=== PATIENT | female | born 1980 | race Caucasian/White ===

== ENCOUNTER → 2018-07-23 | Outpatient (CLI) | payer SELFPAY ==
[~2018-07-23] MED LIST: GABA600T4 PO; GASTROGRAFIN SOLUTION 30ML (Q9963) As Ordered ONE; HYDR-3719 PO; ISOVUE-370 76% 100ML VIAL (Q9967) As Ordered ONE; OMEP10CA78 PO
--- NOTE | 2018-07-23 17:37 | REP ---
Soft-tissue neck CT study with IV contrast: History: Lymphadenopathy. Night sweats. Fullness in the right lobe of the thyroid. CT contrast dose: 100 ml of intravenous Isovue [address] findings: The thyroid lobes are normal and symmetric. No vascular abnormality is seen. Parotid and submandibular glands are normal and symmetric as well. There is no evidence of neck mass, cyst, or adenopathy. Normal sized the anterior and posterior lymph nodes are seen. The glottic and subglottic airway are unremarkable. The lung apices are clear. No bony destructive lesion is seen. The visualized paranasal sinuses are clear. No intraorbital abnormality. Impression: Negative soft-tissue neck CT study. Electronically Signed by Segundo Lopez MD 07/23/2018 08:06 P
--- NOTE | 2018-07-23 17:42 | REP ---
CT CHEST WITH IV CONTRAST: TECHNIQUE: Axial contrast enhanced images from the thoracic inlet to the upper abdomen using 100 mL Isovue 370 intravenous contrast material with multiplanar reformations. No thoracic aortic aneurysm or dissection is seen. Heart is normal in size. There is no mediastinal, hilar or chest wall lymphadenopathy. There is no pleural or pericardial effusion. Small amount of residual thymic tissue is seen in the anterior mediastinum. Lungs are clear with no infiltrate or other suspicious opacities. IMPRESSION: Negative CT chest with contrast. Electronically Signed by Kris Osborn MD 07/28/2018 11:49 A
--- NOTE | 2018-07-23 17:47 | REP ---
CT ABDOMEN AND PELVIS WITH ORAL AND IV CONTRAST AND CT ABDOMEN WITHOUT IV CONTRAST: TECHNIQUE: Axial noncontrast images through the abdomen followed by contrast-enhanced images through the abdomen and pelvis using 100 mL Isovue 370 intravenous contrast material, with coronal and sagittal reformations. The liver, spleen, adrenals, pancreas and kidneys are unremarkable in appearance. There is no renal or ureteral calculus is seen. No gallstones are seen. There is no hydroureteronephrosis. No abdominal aortic aneurysm is seen. There is no adenopathy. I see no free air or free fluid. I see no bowel wall thickening. No pelvic mass is seen. The patient has had a hysterectomy. The urinary bladder is mildly distended and grossly unremarkable. IMPRESSION: No significant abnormalities identified. Electronically Signed by Kris Osborn MD 07/28/2018 11:49 A
--- NOTE | 2018-07-23 19:16 | REP ---
Thyroid sonography: History: Palpable lumps all over the neck. Fullness in the right lobe of the thyroid. Findings: Thyroid isthmus is 0.3 cm in thickness. Right lobe dimensions are 3.8 x 1.5 x 1.5 cm. Left lobe measures 3.9 x 1.7 x 1.3 cm. No thyroid nodule is seen. There is a tiny cyst in each lobe measuring 1 mm and 2 mm on the left and right respectively. No extrathyroidal mass or adenopathy is seen. There are multiple cervical lymph nodes bilaterally but these appear to be normal in size. The largest on the left measures 1.0 x 0.9 x 0.3 cm. On the right the two largest lymph nodes measure 1.0 x 1.2 x 0.3 cm and 0.9 x 0.6 x 0.8 cm. Impression: Unremarkable thyroid sonography. Electronically Signed by Segundo Lopez MD 07/23/2018 08:29 P
== END ==
LOC: M RAD 13:36
PROVIDERS: ATTEND Internal Medicine Hematology & Oncology
DX: R91.8 Other nonspecific abnormal finding of lung field (principal)
CPT/HCPCS: 70491; 71260; 74178; 76536; Q9963; Q9967

== ENCOUNTER → 2018-07-23 | Outpatient (CLI) | payer SELFPAY ==
[~2018-07-23] MED LIST changes: -GASTROGRAFIN SOLUTION 30ML (Q9963) As Ordered ONE; -ISOVUE-370 76% 100ML VIAL (Q9967) As Ordered ONE
--- NOTE | 2018-07-27 09:14 | REPMRS ---
Patient History The patient states she had a clinical breast exam in June 2018. Family history of breast cancer at age 47 in mother, prostate cancer in maternal grandfather. [facility] 5 years ago [facility]. Digital Mammo Screening Bilat: July 23, 2018 - Exam #: [id number] Bilateral CC and MLO view(s) were taken. Technologist: Gabbi Ledesma, Technologist Prior study comparison: April 09, 2012, bilateral digital woman screen mammo, performed at [facility]. FINDINGS: There are scattered fibroglandular densities. There is a moderate amount of residual fibroglandular tissue which is fairly symmetric. There is no interval development of dominant mass, architectural distortion, or clustered microcalcification typical of malignancy. There has been no change in the appearance of the mammogram from the prior studies. 3-D tomosynthesis shows no additional findings. Assessment: BI-RADS/ACR category 1 mammogram. Negative Mammogram. Recommendation Breast MRI of both breasts in 6 months. Routine screening mammogram of both breasts in 1 year (for women over age 40). This patient's Lifetime Breast Cancer RIsk is estimated at 21.1 %. Annual screening Breast MRI scanniing is recommended for patient's whose lifetime risk assessment is over 20%. This mammogram was interpreted with the aid of an FDA-approved computer-aided dectection system. Electronically Signed By: jT Lopez MD 07/27/18 0914
== END ==
LOC: M RAD 13:32
PROVIDERS: ATTEND Internal Medicine Hematology & Oncology
DX: Z12.31 Encounter for screening mammogram for malignant neoplasm of breast (principal); Z80.3 Family history of malignant neoplasm of breast

== ENCOUNTER → 2020-01-13 | Outpatient (CLI) | payer OTHER ==
--- NOTE | 2020-01-13 11:04 | REP ---
INDICATION: N63.10 RT BREAST LUMP,Z80.3 FM HX BREAST CA. Palpable lump laterally right breast. This is marked on the skin. COMPARISON: 07/23/2018. TECHNIQUE: MLO and CC views of the breasts performed with tomosynthesis. Additional spot compression and magnification views are performed of the right breast laterally. Focused right breast ultrasound performed laterally at the site of the palpable lump. FINDINGS: There is extremely dense breast parenchyma bilaterally, as seen on prior study. No mass is seen mammographically and there is no architectural distortion. However, clustered pleomorphic microcalcifications are seen in the lateral posterior right breast, best seen on magnification views. These are at approximately the 9 o'clock position. Ultrasound of the lateral right breast demonstrates a cystic structure at 10 o'clock 6 cm from the nipple measuring 7 x 7 x 3 mm. There is also an adjacent hypoechoic structure which is not a simple cyst measuring 6 x 5 x 3 mm. This could represent a complex cyst or solid nodule. It is not hyperemic with Doppler evaluation. The Volpara volumetric breast density pattern is C. IMPRESSION: BIRADS/ACR category 4 suspicious. Clustered microcalcifications posteriorly 9 o'clock position right breast. Recommend stereotactic biopsy. At the site of the palpable lump in the lateral right breast a benign-appearing cystic structure is seen at 10 o'clock 6 cm from the nipple. 7 cm from the nipple a hypoechoic structure may represent a complex cyst or solid nodule measuring 6 x 5 x 3 mm. Recommend ultrasound-guided sampling of that structure. This patient's Tyrer-Cuzick lifetime breast cancer risk assessment score is 20.9%. This mammogram was interpreted with the aid of an FDA-approved computer-aided detection system. The patient states she had a clinical breast exam in December 2019. The patient letter being requested is M 4. RECOMMENDATION: Recommend stereotactic biopsy of new clustered microcalcifications 9 o'clock position right breast. Recommend ultrasound-guided biopsy of complex cyst or solid nodule at 10 o'clock position of the right breast 7 cm from the nipple, in the region of the palpable abnormality. Supplemental MRI of the breasts is recommended given the extremely dense breasts and increased risk of breast cancer. <Electronically signed by Kris Osborn > 01/13/20 1100
== END ==
LOC: M WHC 07:58
PROVIDERS: ATTEND Physician Assistant
DX: N63.11 Unspecified lump in the right breast, upper outer quadrant (principal); Z80.3 Family history of malignant neoplasm of breast; R92.0 Mammographic microcalcification found on diagnostic imaging of breast
CPT/HCPCS: 76642; 77066; G0279

== ENCOUNTER → 2020-10-02 | Outpatient (CLI) | payer OTHER, SELFPAY ==
[~2020-10-02] MED LIST changes: +GLUCAGON INJ 1MG VIAL As Ordered ONE; +ISOVUE-370 76% 100ML VIAL As Ordered ONE; +NEULUMEX 0.1% SUSPENSION 450ML BOTTLE (FORMERLY VOLUMEN) As Ordered ONE
--- NOTE | 2020-10-02 17:49 | REP ---
INDICATION: LOCALIZED ENLARGED LN, DIARRHEA, EPIGASTRIC PAIN COMPARISON: 07/23/2018. TECHNIQUE: CT Scan of the abdomen and pelvis was performed with intravenous administration of 100 cc of Isovue 370, and volumen oral contrast. Sagittal and coronal reconstruction images are performed. FINDINGS: Lung bases: Unremarkable. Liver: Normal Gallbladder: Unremarkable. Spleen: There is a tiny calcified granuloma. Adrenals: Normal. Pancreas: Normal. Kidneys: Normal. Small and large bowel: Unremarkable. Free fluid: None. Abdominal aorta: No aneurysm or dissection. Adenopathy: None. Appendix: Not inflamed. Osseous structures: Unremarkable. Pelvis: No mass. Prior hysterectomy. IMPRESSION: No significant abnormalities detected. <Electronically signed by Kris Osborn > 10/02/20 [id number]
== END ==
LOC: M RAD 15:07
PROVIDERS: ATTEND Internal Medicine Gastroenterology
DX: R59.0 Localized enlarged lymph nodes (principal); R13.13 Dysphagia, pharyngeal phase; R19.7 Diarrhea, unspecified
CPT/HCPCS: 74177; J1610; Q9967

== ENCOUNTER → 2021-01-17 | Outpatient (CLI) | payer SELFPAY ==
[~2021-01-17] MED LIST changes: -GLUCAGON INJ 1MG VIAL As Ordered ONE; -ISOVUE-370 76% 100ML VIAL As Ordered ONE; -NEULUMEX 0.1% SUSPENSION 450ML BOTTLE (FORMERLY VOLUMEN) As Ordered ONE
== END ==
LOC: M LABSMTC 09:51
PROVIDERS: ATTEND Anesthesiology
DX: Z11.52 Encounter for screening for COVID-19 (principal)

== ENCOUNTER 2021-01-22 11:19 | Day surgery (SDC) | payer SELFPAY ==
[~2021-01-22] VITALS: Ht 157.5 cm; Wt 48.7 kg
[~2021-01-22 11:19] MED LIST changes: +NS 1,000 ML IV ONE
--- OUTSIDE RECORDS SUMMARY | 2021-01-22 11:23 | CCD ---
Author Author [facility] Organization [facility] Address Unknown Phone Unavailable Care Team Providers [facility] Volunteer Coordinator Name Role Phone HEMA LOZA MD Unavailable Unavailable HEMA LOZA MD Unavailable Unavailable HEMA LOZA MD Unavailable Unavailable HEMA LOZA MD Unavailable Unavailable HEMA LOZA MD Unavailable Unavailable HEMA LOZA MD Unavailable Unavailable HEMA LOZA MD Unavailable Unavailable HEMA LOZA MD Unavailable Unavailable HEMA LOZA MD Unavailable Unavailable HEMA LOZA MD Unavailable Unavailable HEMA LOZA MD Unavailable Unavailable REINHEMA YODER MD Unavailable Unavailable REINHEMA YODER MD Unavailable Unavailable REINHEMA YODER MD Unavailable Unavailable HEMA LOZA MD Unavailable Unavailable HEMA LOZA MD Unavailable Unavailable HEMA LOZA MD Unavailable Unavailable HEMA LOZA MD Unavailable Unavailable HEMA LOZA MD Unavailable Unavailable HEMA LOZA MD Unavailable Unavailable HEMA LOZA MD Unavailable Unavailable HEMA LOZA MD Unavailable Unavailable HEMA LOZA MD Unavailable Unavailable HEMA LOZA MD Unavailable Unavailable HEMA LOZA MD Unavailable Unavailable HEMA LOZA MD Unavailable Unavailable HEMA LOZA MD Unavailable Unavailable HEMA LOZA MD Unavailable Unavailable HEMA LOZA MD Unavailable Unavailable HEMA LOZA MD Unavailable Unavailable HEMA LOZA MD Unavailable Unavailable REINHEMA YODER MD Unavailable Unavailable REINDL, HEMA MENDEZ Unavailable Unavailable REINDL, HEMA MENDEZ Unavailable Unavailable REINDL, HEMA MENDEZ Unavailable Unavailable REINDL, HEMA MENDEZ Unavailable Unavailable REINDL, HEMA MENDEZ Unavailable Unavailable REINDL, HEMA MENDEZ Unavailable Unavailable REINDL, HEMA MENDEZ Unavailable Unavailable REINDL, HEMA MENDEZ Unavailable Unavailable REINDL, HEMA MENDEZ Unavailable Unavailable REINDL, HEMA MENDEZ Unavailable Unavailable LAUREN, C., HENRY Unavailable Unavailable ENGLEFE HAYES MD Unavailable Unavailable ENGLEFE HAYES MD Unavailable Unavailable ENGLEFE HAYES MD Unavailable Unavailable ENGLEFE HAYES MD Unavailable Unavailable ENGLEFE HAYES MD Unavailable Unavailable ENGLEFE MD Unavailable Unavailable ENGLEFE HAYES MD Unavailable Unavailable ENGLEFE HAYES MD Unavailable Unavailable ENGLEFE HAYES MD Unavailable Unavailable ENGLEFE HAYES MD Unavailable Unavailable ENGLEFE HAYES MD Unavailable Unavailable ENGLEFE HAYES MD Unavailable Unavailable ENGLEFE HAYES MD Unavailable Unavailable ENGLEFE HAYES MD Unavailable Unavailable ENGLEFE HAYES MD Unavailable Unavailable ENGLEFE HAYES MD Unavailable Unavailable ENGLEFE HAYES MD Unavailable Unavailable ENGLEFE HAYES MD Unavailable Unavailable ENGLEFE HAYES MD Unavailable Unavailable ENGLEFE HAYES MD Unavailable Unavailable ENGLEFE HAYES MD Unavailable Unavailable ENGLEFE HAYES MD Unavailable Unavailable ENGLEFE HAYES MD Unavailable Unavailable ENGLEEF HAYES MD Unavailable Unavailable ENGLEFE HAYES MD Unavailable Unavailable ENGLEFE HAYES MD Unavailable Unavailable ENGLEFE HAYES MD Unavailable Unavailable ENGLEFE HAYES MD Unavailable Unavailable ENGLEFE HAYES MD Unavailable Unavailable ENGLEFE HAYES MD Unavailable Unavailable ENGLEFE HAYES MD Unavailable Unavailable ENGLEFE HAYES MD Unavailable Unavailable ENGLEFE HAYES MD Unavailable Unavailable ENGLEFE HAYES MD Unavailable Unavailable ENGLEFE HAYES MD Unavailable Unavailable ENGLEFE HAYES MD Unavailable Unavailable ENGLEFE MD Unavailable Unavailable ENGLEFE HAYES MD Unavailable Unavailable ENGLEFE HAYES MD Unavailable Unavailable ENGLEFE HAYES MD Unavailable Unavailable ENGLEFE HAYES MD Unavailable Unavailable ENGLEFE HAYES MD Unavailable Unavailable ENGLEFE HAYES MD Unavailable Unavailable ENGLEFE HAYES MD Unavailable Unavailable ENGLEFE HAYES MD Unavailable Unavailable ENGLEFE MD Unavailable Unavailable ENGLEFE HAYES MD Unavailable Unavailable ENGLEFE HAYES MD Unavailable Unavailable ENGLEFE HAYES MD Unavailable Unavailable ENGLEFE HAYES MD Unavailable Unavailable ENGLEFE HAYES MD Unavailable Unavailable ENGLE, FE MD Unavailable Unavailable ENGLE, FE MD Unavailable Unavailable ENGLE, FE MD Unavailable Unavailable ENGLE, FE MD Unavailable Unavailable ENGLE, FE MD Unavailable Unavailable ENGLE, FE MD Unavailable Unavailable ENGLE, FE MD Unavailable Unavailable ENGLE, FE MD Unavailable Unavailable ENGLE, FE MD Unavailable Unavailable ENGLE, FE MD Unavailable Unavailable ENGLE, FE MD Unavailable Unavailable ENGLE, FE MD Unavailable Unavailable ENGLE, FE MD Unavailable Unavailable ENGLE, FE MD Unavailable Unavailable ENGLE, FE MD Unavailable Unavailable ENGLE, FE MD Unavailable Unavailable ENGLE, FE MD Unavailable Unavailable ENGLE, FE MD Unavailable Unavailable ENGLE, FE MD Unavailable Unavailable ENGLE, FE MD Unavailable Unavailable Re-disclosure Warning The records that you are about to access may contain information from federally-assisted alcohol or drug abuse programs. If such information is present, then the following federally mandated warning applies: This information has been disclosed to you from records protected by federal confidentiality rules (42 CFR part 2). The federal rules prohibit you from making any further disclosure of this information unless further disclosure is expressly permitted by the written consent of the person to whom it pertains or as otherwise permitted by 42 CFR part 2. A general authorization for the release of medical or other information is NOT sufficient for this purpose. The Federal rules restrict any use of the information to criminally investigate or prosecute any alcohol or drug abuse patient.The records that you are about to access may contain highly sensitive health information, the redisclosure of which is protected by Article 27-F of the [place] Public [facility] law. If you continue you may have access to information: Regarding HIV / AIDS; Provided by facilities licensed or operated by the [place] Office of Mental Health; or Provided by the [place] Office for People With Developmental Disabilities. If such information is present, then the following [place] mandated warning applies: This information has been disclosed to you from confidential records which are protected by state law. State law prohibits you from making any further disclosure of this information without the specific written consent of the person to whom it pertains, or as otherwise permitted by law. Any unauthorized further disclosure in violation of state law may result in a fine or usp sentence or both. A general authorization for the release of medical or other information is NOT sufficient authorization for further disc losure. Allergies and Adverse Reactions Type Description Substance Reaction Status Data Source(s ) No Known Environmental Allergies No Known Environmental Al lergies [facility] Drug allergy KIWI KIWI SWELLING; RASH [facility] Drug allergy Augmentin Augmentin VOMITING [facility] Propensity to adverse reactions CHANTIX CHANTIX SEVERE NIGHTMAR ES [facility] Propensity to adverse reactions PHENERGAN PHENERGAN RASH [facility] Family History Family Member Name Family Member Gender Family Member Status Date o f Status Description Data Source(s) Unknown Female Problem [facility] ([facility]) Unknown Female Problem [facility] ([facility]) Unknown Female Problem [facility] ([facility]) Unknown Unknown Problem [facility] ([facility], ) Unknown Unknown Problem [facility] ([facility], ) Unknown Unknown Problem [facility] ([facility], ) Encounters Encounter Providers Location Date Indications Data Source(s ) Outpatient Attender: HEMA Delaney/Fabby/Kirill/Johanna yoder 08/21/2020 11:00:00 AM EDT [facility] Outpatient Attender: FE ENGLE MD [facility] 06/26/2020 0 8:00:00 AM EDT [facility] ([facility]) Outpatient Attender: FE ENGLE MDConsultant: FE Manning MD 06/26/2020 07:46:00 AM EDT - 06/26/2020 07:46:00 AM EDT [facility] Outpatient Attender: FE ENGLE MDConsultant: FE Manning MD 03/26/2020 07:47:00 AM EST - 03/26/2020 07:47:00 AM [facility] Outpatient Attender: FE ENGLE MDConsultant: FE Manning MD 02/08/2020 07:21:00 AM EST - 02/08/2020 07:21:00 AM [facility] Outpatient Attender: FE ENGLE MD Family Practice 02/08/2020 0 6:20:00 AM EST [facility] ([facility]) Outpatient Attender: HENRY AGUILARConsultant: FE ENGLE MD 01/23/2020 07:55:00 PM EST - 01/23/2020 08:05:00 PM EST [facility] Immunizations Vaccine Date Status Description Data Source(s) New in 2011. IIV4 02/08/2020 07:21:00 AM EST completed [facility] ([facility]) Medications Medication Brand Name Start Date Product Form Dose Route Admi nistrative Instructions Pharmacy Instructions Status Indications Reaction Description Data Source(s) Acetaminophen 325 MG / Hydrocodone Bitartrate 10 MG Or al Tablet 10-325 mg HYDROCODONE/ACETAMINOPHEN 09/12/2020 12:00:00 AM EDT tablet 60 TAKE ONE TABLET BY MOUTH TWICE A DAY MAXIMUM DAILY DOSE = 2 TAKE ONE TABLET BY MOUTH TWICE A DAY MAXIMUM DAILY DOSE = 2 [facility]/dose 08/21/2020 12:00:00 AM EDT powder 510 USE DIRECTED FOR COLONOSCOPY PREP USE DIRECTED FOR COLONOSCOPY PREP SOLD: 09/06/2020 [facility] Dicyclomine Hydrochloride 20 MG Oral Tablet Dicyclomine HCL 08/21/2020 12:00:00 AM EDT ORAL active [facility] ([facility], ) 20 mg 08/21/2020 12:00:00 AM EDT tablet 60 TAKE ONE TABLET BY MOUTH FOUR TIMES A DAY NEEDED, 1/2 HOUR BEFORE MEAL FOR ABDOMINAL PAIN/DIARRHEA/SPASM TAKE ONE TABLET BY MOUTH FOUR TIMES A DAY NEEDED, 1/2 HOUR BEFORE MEAL FOR ABDOMINAL PAIN/DIARRHEA/SPASM SOLD: 09/06/2020 [facility] POLYETHYLENE GLYCOL 3350 142 MG/ML Oral Solution [Miralax] M iralax 08/21/2020 12:00:00 AM EDT active M [facility]ENT ([facility] [place], ) Magnesium Hydroxide 80 MG/ML Oral Suspension Milk Of Magnesi a 08/21/2020 12:00:00 AM EDT ORAL active M [facility] ([facility] [place], ) Acetaminophen 325 MG / Hydrocodone Bitartrate 10 MG Or al Tablet 10-325 mg HYDROCODONE/ACETAMINOPHEN 08/05/2020 12:00:00 AM EDT tablet 60 TAKE ONE TABLET BY MOUTH TWICE A DAY MAXIMUM DAILY DOSE = 2 TAKE ONE TABLET BY MOUTH TWICE A DAY MAXIMUM DAILY DOSE = 2 SOLD: 08/10/2020 [facility] Acetaminophen 325 MG / Hydrocodone Bitartrate 10 MG Or al Tablet 10-325 mg HYDROCODONE/ACETAMINOPHEN 07/07/2020 12:00:00 AM EDT tablet 60 TAKE ONE TABLET BY MOUTH TWICE A DAY MAXIMUM DAILY DOSE = 2 TAKE ONE TABLET BY MOUTH TWICE A DAY MAXIMUM DAILY DOSE = 2 SOLD: 07/08/2020 [facility] 10-325 mg 06/07/2020 12:00:00 AM EDT tablet 60 TAKE ONE TABLET BY MOUTH TWICE A DAY MAXIMUM DAILY DOSE = 2 TAKE ONE TABLET BY MOUTH TWICE A DAY MAX IMUM DAILY DOSE = 2 SOLD: 06/08/2020 [facility] 10-325 mg 05/09/2020 12:00:00 AM EST tablet 60 TAKE ONE TABLET BY MOUTH TWICE A DAY MAXIMUM DAILY DOSE = 2 TAKE ONE TABLET BY MOUTH TWICE A DAY MAX IMUM DAILY DOSE = 2 SOLD: 05/10/2020 [facility] 10-325 mg 04/08/2020 12:00:00 AM EST tablet 60 TAKE ONE TABLET BY MOUTH TWICE A DAY MAXIMUM DAILY DOSE = TWO TABLETS TAKE ONE TABLET BY MOUTH TWICE A DAY MAXIMUM DAILY DOSE = TWO TABLETS SOLD: 04/08/2020 [facility] 20 mg 03/27/2020 12:00:00 AM EST capsule,delayed release (DR/EC) 90 TAKE ONE CAPSULE BY MOUTH EVERY DAY TAKE ONE CAPSULE BY MOUTH EVERY DAY SOLD: 04/08/2020 [facility] 10-325 mg 03/08/2020 12:00:00 AM EST tablet 60 TAKE ONE TABLET BY MOUTH TWICE A DAY MAXIMUM DAILY DOSE = 2 TAKE ONE TABLET BY MOUTH TWICE A DAY MAX IMUM DAILY DOSE = 2 SOLD: 03/10/2020 [facility] Omeprazole 20 MG Delayed Release Oral Capsule Omeprazole 02/16/2020 12:00:00 AM EST ORAL active [facility] ([facility]) 10-325 mg 02/08/2020 12:00:00 AM EST tablet 60 TAKE ONE TABLET BY MOUTH TWICE A DAY MAXIMUM DAILY DOSE = TWO TABLETS TAKE ONE TABLET BY MOUTH TWICE A DAY MAXIMUM DAILY DOSE = TWO TABLETS SOLD: 02/08/2020 [facility] 10-325 mg 01/31/2020 12:00:00 AM EST tablet 14 TAKE ONE TABLET BY MOUTH TWICE A DAY MAXIMUM DAILY DOSE = 2 TABLETS TAKE ONE TABLET BY MOUTH TWICE A DAY MAXIMUM DAILY DOSE = 2 TABLETS SOLD: 01/31/2020 [facility] 10-325 mg 12/30/2019 12:00:00 AM EDT tablet 60 TAKE ONE TABLET BY MOUTH TWICE A DAY MAXIMUM DAILY DOSE = 2 TABLETS TAKE ONE TABLET BY MOUTH TWICE A DAY MAXIMUM DAILY DOSE = 2 TABLETS SOLD: 12/31/2019 [facility] 10-325 mg 11/29/2019 12:00:00 AM EDT tablet 60 TAKE ONE TABLET BY MOUTH TWICE A DAY MAXIMUM DAILY DOSE = 2 TAKE ONE TABLET BY MOUTH TWICE A DAY MAX IMUM DAILY DOSE = 2 SOLD: 12/01/[address] [facility] [address] [facility] 600 mg 09/29/2019 12:00:00 AM EDT tablet 90 TAKE ONE TABLET BY MOUTH THREE TIMES A DAY TAKE ONE TABLET BY MOUTH THREE TIMES A DAY SOLD: 12/31/2019 [facility] 600 mg 09/29/2019 12:00:00 AM EDT tablet 90 TAKE ONE TABLET BY MOUTH THREE TIMES A DAY TAKE ONE TABLET BY MOUTH THREE TIMES A DAY SOLD: 05/26/2020 [facility] Insurance Providers Payer name Policy type / Coverage type Policy ID Covered alliance party ID Covered alliance party's relationship to lay Policy Lay Plan Information [facility] [id number] Self [id number] [place] [id number] SP [id number] [place] [id number] 18 [id number] [place] [id number] S [id number] [place] [id number] 18 [id number] [place] [id number] 18 [id number] [place] [facility] [place] [facility] [id number] 18 [id number] Private Pay Commercial [id number] Self [id number] Private Pay Commercial [id number] Self [id number] Private Pay Commercial [id number] Self [id number] [place] PPO 302/307 [id number] SP [id number] Private Pay Commercial [id number] Self [id number] Private Pay Commercial [id number] [id number] Self [id number] Private Pay Commercial [id number] [id number] Self [id number] BLUE CROSS BLUE SHIELD -PHYSICIAN [id number] 18 [id number] BLUE CROSS BLUE SHIELD -O/P [id number] 18 [id number] Private Pay Commercial [id number] [id number]106.0 Self [id number] Private Pay Commercial [id number] [id number]10.6106.0 Self [id number] BLUE CROSS BLUE SHIELD CL BS [id number] 18 [id number] Blue Cross Blue Shield CL Commercial [id number] Self YN [id number] [place] [id number] S YND [id number] Blue Cross Blue Shield CL Commercial [id number] 2..[id number] Self YN [id number] Blue Cross Blue Shield CL Commercial [id number] 2...[id number] Self YN [id number] [place]CELL[place] BCBS B [id number] S YND [id number] Blue Cross Blue Shield CL Commercial [id number] ...[id number] Self YN [id number] Blue Cross Blue Shield CL Commercial [id number] 2...[id number] Self YN [id number] Blue Cross Blue Shield CL Commercial [id number] 2..[id number] Self YN [id number] Blue Cross Blue Shield CL Commercial [id number] 2...[id number] Self YN [id number] Blue Cross Blue Shield CL Commercial [id number] ..[id number] Self YN [id number] Blue Cross Blue Shield CL Commercial [id number] 2..[id number] Self YN [id number] Blue Cross Blue Shield CL Commercial [id number] 2..[id number] Self YN [id number] Blue Cross Blue Shield CL Commercial [id number] 2..[id number] Self YN [id number] Blue Cross Blue Shield CL Commercial [id number] Self YN [id number] Blue Cross Blue Shield CL Commercial [id number] Self YN [id number] Blue Cross Blue Shield CL Commercial [id number] Self YN [id number] Blue Cross Blue Shield CL Commercial [id number] Self BLUE CROSS BLUE SHIELD -CLINIC [id number] [facility] [employer] (HMO) [id number] Self BLUE CROSS -O/P [id number] 18 [id number] SIMON DISCT 60% OF CAP CHGS SP [id number] S [id number] P UNAVAILABLE UNAVAILA BLE PRIVATE PAY [id number] 18 [id number] SELF PAY ONLY [id number] SP [id number] Problems, Conditions, and Diagnoses Code Display Name Description Problem Type Effective Dates Data Source(s) Z23 Encounter for immunization Encounter for immunization Diagnosis 02/08/2020 07:21:00 AM [facility] R920 Mammographic microcalcification found on diagnostic imaging of breast Mammographic microcalcification found on diagnostic imaging of breast Diagnosis 02/08/2020 07:21:00 AM [facility] M5030 Other cervical disc degeneration, unspec ified cervical region Other cervical disc degeneration, unspecified cervical region Diagnosis 02/08/2020 07:21:00 AM [facility] K219 Gastro-esophageal reflux disease without esophagitis Gastro-esophageal reflux disease without esophagitis Diagnosis 02/08/2020 07:21:00 AM [facility] N6011 Diffuse cystic mastopathy of right breas t Diffuse cystic mastopathy of right breast Diagnosis 01/23/2020 07:55:00 PM [facility] Surgeries/Procedures No Information Results ID Date Data Source [id number] 01/17/2021 09:55:00 AM EDT [facility] Name Value Range Interpretation Code Description Data Abbie rce(s) Supporting Document(s) SARS-CoV-2 (COVID-19) RNA [Presence] in Respiratory specimen by ALEX with probe detection Not Detected [facility] This lab was ordered by [facility] and reported by [employer] ID Date Data Source [id number] 01/17/2020 01:02:00 PM EST [facility] ([facility]) Name Value Range Interpretation Code Description Data Abbie rce(s) Supporting Document(s) Laboratory test finding (navigational concept) Laboratory test result [facility] ([facility]) Laboratory test finding (navigational concept) Laboratory test result [facility] ([facility]) US Breast Right Laboratory test result [facility] ([facility]) Mammo Diagnostic CAD Unilateral Laboratory test result [facility] ([facility]) ID Date Data Source [id number] 01/13/2020 10:00:00 AM EDT [facility] ([facility]) Name Value Range Interpretation Code Description Data Abbie rce(s) Supporting Document(s) US Breast Right Laboratory test result [facility] ([facility]) Mammo Diagnostic CAD Bilateral Laboratory test result [facility] ([facility]) US Breast Left Laboratory test result [facility] ([facility]) Procedure Social History Code Duration Value Status Description Data Source(s ) Smoking 02/08/2020 12:00:00 AM EST Patient is a former smoker completed Patient is a former [facility] Vital Signs ID Date Data Source UNK Name Value Range Interpretation Code Description Data Source(s) Systolic blood pressure 120 mm[Hg] 120 mm[Hg] M [facility] ([facility] [place], ) Diastolic blood pressure 69 mm[Hg] 69 mm[Hg] [facility] [place] Body height 62.5 [in_i] 62.5 [in_i] [facility] ([facility]) 5'2.50" Body weight 116.00 [lb_av] 116.00 [lb_av] [facility] T ([facility] [place], ) Body mass index (BMI) [Ratio] 20.9 kg/m2 20.9 k g/m2 [facility] Evarts body weight 110 [lb_av] 110 [lb_av] [facility] T ([facility]) Body weight 52.618 kg 52.618 kg [facility] ([facility]) Body surface area Derived from formula 1.53 m2 1.53 m2 [facility] ([facility]) Respiratory rate 18 /min 18 /min [facility] ( [facility]) Oxygen saturation in Arterial blood by Pulse oximetry 98 % 98 % [facility] ([facility]) Body weight 120.00 [lb_av] 120.00 [lb_av] [facility] T ([facility]) Body weight 54.432 kg 54.432 kg [facility] ([facility]) Body height 64 [in_i] 64 [in_i] [facility] 5'4" Body mass index (BMI) [Ratio] 20.6 kg/m2 20.6 k g/m2 [facility] ([facility]) Body surface area Derived from formula 1.57 m2 1.57 m2 [facility] ([facility]) Systolic blood pressure 110 mm[Hg] 110 mm[Hg] M [facility] ([facility]) Diastolic blood pressure 64 mm[Hg] 64 mm[Hg] [facility] ([facility]) Heart rate 77 /min 77 /min [facility] ([facility]) Body temperature 97.7 [degF] 97.7 [degF] [facility] ([facility]) Body temperature 99.2 [degF] 99.2 [degF] [facility] ([facility]) Respiratory rate 18 /min 18 /min [facility] ( [facility]) Systolic blood pressure 120 mm[Hg] 120 mm[Hg] M [facility] ([facility]) Diastolic blood pressure 60 mm[Hg] 60 mm[Hg] [facility] ([facility]) Heart rate 85 /min 85 /min [facility] Oxygen saturation in Arterial blood by Pulse oximetry 98 % 98 % [facility] ([facility]) Body height 64 [in_i] 64 [in_i] [facility] ([facility]) 5'4" Body mass index (BMI) [Ratio] 20.1 kg/m2 20.1 k g/m2 [facility] ([facility]) Body surface area Derived from formula 1.56 m2 1.56 m2 [facility] ([facility]) Body weight 53.071 kg 53.071 kg [facility] ([facility]) Body weight 117.00 [lb_av] 117.00 [lb_av] [facility] T ([facility]) Body temperature 97.6 [degF] 97.6 [degF] [facility] ([facility]) Respiratory rate 18 /min 18 /min [facility] ( [facility]) Body surface area Derived from formula 1.55 m2 1.55 m2 [facility] ([facility]) Oxygen saturation in Arterial blood by Pulse oximetry 95 % 95 % [facility] ([facility]) Body weight 116.00 [lb_av] 116.00 [lb_av] [facility] T ([facility]) Body weight 52.618 kg 52.618 kg [facility] ([facility]) Body height 64 [in_i] 64 [in_i] [facility] ([facility]) 5'4" Body mass index (BMI) [Ratio] 19.9 kg/m2 19.9 k g/m2 [facility] ([facility]) Systolic blood pressure 92 mm[Hg] 92 mm[Hg] M [facility] ([facility]) Diastolic blood pressure 52 mm[Hg] 52 mm[Hg] [facility] ([facility]) Heart rate 72 /min 72 /min [facility]
[2021-01-22] MEDS ORDERED: fentaNYL 100 MCG/2 ML INJECTION (J3010) As Ordered ONE (12:29)
[2021-01-22] MEDS ORDERED: propofoL 200 MG/20 ML VIAL As Ordered ONE (12:30)
[2021-01-22] MEDS ORDERED: LIDOCAINE 2% 100MG/5ML SDV (FOR ANES.) As Ordered ONE (12:30)
--- NOTE | 2021-01-22 13:09 | ROOR ---
Patient Name: Nikky Sparrow Procedure Date: 01/22/2021 12:51 PM Date of : 1980 Age: 40 Room: [facility] Gender: Female Note Status: Finalized Procedure: Upper GI endoscopy Indications: Generalized abdominal pain, Endoscopy to assess diarrhea in patient suspected of having disease of the small-bowel Providers: Jose Saleh MD Referring MD: FE ENGLE MD Requesting Provider: Medicines: Monitored Anesthesia Care Complications: No immediate complications. Procedure: Pre-Anesthesia Assessment: - The heart rate, respiratory rate, oxygen saturations, blood pressure, adequacy of pulmonary ventilation, and response to care were monitored throughout the procedure. The Endoscope was introduced through the mouth, and advanced to the second part of duodenum. The upper GI endoscopy was accomplished without difficulty. The patient tolerated the procedure well. Findings: The examined esophagus was normal. Mild gastritis, Biopsies were taken with a cold forceps for Helicobacter pylori testing. Diffuse mucosal flattening was found in the first portion of the duodenum and in the second portion of the duodenum. Biopsies for histology were taken with a cold forceps for evaluation of celiac disease. Impression: - Normal esophagus. - Mild gastritis. Biopsied - Atrophic and mildly flattened mucosa was found in the duodenum, rule out celiac disease. Biopsied. Recommendation: - Telephone endoscopist for pathology results in 2 weeks. Procedure Code(s): --- Professional --- 06188, Esophagogastroduodenoscopy, flexible, transoral; with biopsy, single or multiple Diagnosis Code(s): --- Professional --- R19.7, Diarrhea, unspecified K31.89, Other diseases of stomach and duodenum R10.84, Generalized abdominal pain CPT copyright 2019 [employer]. All rights reserved. The codes documented in this report are preliminary and upon auditing coder review may be revised to meet current compliance requirements. Jose Saleh MD Jose Saleh MD 01/22/2021 1:09:29 PM Electronically signed by Jose Saleh MD Number of Addenda: 0 Note Initiated On: 01/22/2021 12:51 PM Estimated Blood Loss: Estimated blood loss: none.
--- NOTE | 2021-01-22 13:24 | ROOR ---
Patient Name: Nikky Sparrow Procedure Date: 01/22/2021 12:52 PM Date of : 1980 Age: 40 Room: [facility] Gender: Female Note Status: Finalized Procedure: Colonoscopy Indications: Generalized abdominal pain, Diarrhea Providers: Jose Saleh MD Referring MD: FE ENGLE MD Requesting Provider: Medicines: Monitored Anesthesia Care Complications: No immediate complications. Procedure: Pre-Anesthesia Assessment: - The heart rate, respiratory rate, oxygen saturations, blood pressure, adequacy of pulmonary ventilation, and response to care were monitored throughout the procedure. The Colonoscope was introduced through the anus and advanced to 10 cm into the ileum. The colonoscopy was performed without difficulty. The patient tolerated the procedure well. The quality of the bowel preparation was good. Findings: The perianal and digital rectal examinations were normal. The colon (entire examined portion) appeared normal. The terminal ileum appeared normal. Biopsies for histology were taken with a cold forceps from the entire colon for evaluation of microscopic colitis. Impression: - Small internal hemorrhoids. - The entire colon is otherwise normal. - The examined portion of the ileum was normal. - Biopsies were taken with a cold forceps from the entire colon for evaluation of microscopic colitis. Recommendation: - Telephone endoscopist for pathology results in 2 weeks. Procedure Code(s): --- Professional --- 50612, Colonoscopy, flexible; with biopsy, single or multiple Diagnosis Code(s): --- Professional --- R19.7, Diarrhea, unspecified R10.84, Generalized abdominal pain CPT copyright 2019 [employer]. All rights reserved. The codes documented in this report are preliminary and upon remote medical coder review may be revised to meet current compliance requirements. Jose Saelh MD Jose Saleh MD 01/22/2021 1:23:45 PM Electronically signed by Jose Saleh MD Number of Addenda: 0 Note Initiated On: 01/22/2021 12:52 PM Estimated Blood Loss: Estimated blood loss: none.
[2021-01-22 13:46] VITALS: BP 118/70
== END 2021-01-22 13:48 | disposition home or self-care (01) ==
LOC: M OPP 11:19
PROVIDERS: ATTEND Internal Medicine Gastroenterology
DX: K29.70 Gastritis, unspecified, without bleeding (principal); K64.0 First degree hemorrhoids; R10.84 Generalized abdominal pain; R19.7 Diarrhea, unspecified
CPT/HCPCS: 43239; 45380; 88305; J3010

== ENCOUNTER 2024-05-19 10:57 | Day surgery (SDC) | payer BC, SELFPAY ==
[~2024-05-19] VITALS: Ht 157.5 cm; Wt 52.1 kg
[~2024-05-19 10:57] MED LIST changes: +GABA-1490 PO; -GABA600T4 PO; +HAIRTAB15 PO; +LIDOCAINE 2% 100MG/5ML SDV (FOR ANES.) As Ordered ONE; -NS 1,000 ML IV ONE; -OMEP10CA78 PO; +OMEP1CAP71 PO; +THERTAB52 PO; +propofoL 200 MG/20 ML VIAL As Ordered ONE
[2024-05-19] MEDS ORDERED: GLYCOPYRROLATE INJ 0.2 MG/ML 2 ML VIAL As Ordered ONE (12:13)
[2024-05-19] MEDS ORDERED: fentaNYL 100 MCG/2 ML INJECTION As Ordered ONE (12:22)
[2024-05-19 12:52] VITALS: TEMP 98.9
[2024-05-19 13:10] VITALS: BP 109/56; O2SAT 99
== END 2024-05-19 13:21 | disposition home or self-care (01) ==
LOC: M OPP 10:57
PROVIDERS: ATTEND Internal Medicine Gastroenterology
DX: K90.0 Celiac disease (principal); Z88.1 Allergy status to other antibiotic agents; Z80.3 Family history of malignant neoplasm of breast; Z80.1 Family history of malignant neoplasm of trachea, bronchus and lung
CPT/HCPCS: 43239; 88305; J3010

== ENCOUNTER 2024-11-22 09:49 | Day surgery (SDC) | payer BC ==
[~2024-11-22] VITALS: Ht 157.5 cm; Wt 54.0 kg
[~2024-11-22 09:49] MED LIST changes: -LIDOCAINE 2% 100MG/5ML SDV (FOR ANES.) As Ordered ONE; -propofoL 200 MG/20 ML VIAL As Ordered ONE
[2024-11-22] MEDS ORDERED: LIDOCAINE 2% 100 MG/5 ML SDV (FOR ANES.) As Ordered ONE (10:14)
[2024-11-22] MEDS ORDERED: MIDAZOLAM INJ 2 MG/2 ML VIAL As Ordered ONE (10:14)
[2024-11-22] MEDS ORDERED: ROCURONIUM BROMIDE 50MG/5ML VIAL As Ordered ONE (10:14)
[2024-11-22] MEDS ORDERED: LR 1,000 ML IV SCH ×2 (10:30→12:20)
[2024-11-22] MEDS: OXYMETAZOLINE 0.05% NASAL SPRAY As Ordered ONE (11:55)
[2024-11-22] MEDS ORDERED: SUGAMMADEX SODIUM 500 MG/5 ML VIAL As Ordered ONE (11:59)
[2024-11-22] MEDS ORDERED: dexAMETHasone 4 MG/ML 1 ML VIAL As Ordered ONE (12:00)
[2024-11-22] MEDS ORDERED: ONDANSETRON 4MG 2ML VIAL As Ordered ONE (12:00)
[2024-11-22] MEDS ORDERED: ACETAMINOPHEN 1000MG/100ML IV BAG As Ordered ONE (12:00)
[2024-11-22] MEDS ORDERED: HYDROMORPHONE HCL 0.5 MG/0.5 ML SYRINGE IV PRN (12:20)
[2024-11-22] MEDS ORDERED: ONDANSETRON 4MG 2ML VIAL IV PRN (12:20)
[2024-11-22 13:04] VITALS: BP 125/72; TEMP 96.7; O2SAT 97
[2024-11-22] MEDS ORDERED: LACRILUBE (AKWA TEARS) OPHTH OINT 3.5 GM As Ordered ONE (13:04)
== END 2024-11-22 13:14 | disposition home or self-care (01) ==
LOC: M SDC 09:49
PROVIDERS: ATTEND Otolaryngology
DX: J38.7 Other diseases of larynx (principal); R13.10 Dysphagia, unspecified; F17.210 Nicotine dependence, cigarettes, uncomplicated; K21.9 Gastro-esophageal reflux disease without esophagitis; Z88.8 Allergy status to other drugs, medicaments and biological substances; Z88.1 Allergy status to other antibiotic agents; Z90.710 Acquired absence of both cervix and uterus
CPT/HCPCS: 31536; 88305; J0131; J1100; J2250; J2405; J2765; J3010